=== PATIENT | male | born 1950 | race Hispanic/Latino ===

== ENCOUNTER 2018-05-15 08:59 | Outpatient (CLI) | payer MEDICARE ==
[~2018-05-15 08:59] MED LIST: ISOVUE-370 76%-LOCM 1 ML ONE
--- NOTE | 2018-05-15 11:45 | CT ---
CT ABDOMEN AND PELVIS WITH AND WITHOUT CONTRAST: Technique: Multiple axial tomograms were obtained through the pelvis pre and post IV contrast. Post c ontrast images were obtained with portal venous and delayed venous phase on urographic protocol. Indications: Hematuria. Elevated PSA. FINDINGS: Lung bases are clear. Reviews of the urinary tract on the noncontrast images shows no evidence of urinary tract calculus. N o hydronephrosis. Post contrast images show symmetric enhancement and function of both kidneys. There are tiny renal cy stic lesions seen bilaterally with the largest measuring approximately 1.0 cm. No enhancing renal les ion identified. Delayed contrast images show contrast excretion into the collecting structures. Collecting structures appear unremarkable. The urinary bladder is distended on the delayed sequence. No significant bladder wall thickening. The re is prostatic hypertrophy which does indent the floor of the bladder. There are several small adjacent cystic lesions in the left lobe of the liver with the largest measur ing 2.4 cm. There are at least two smaller cystic lesions in the superior left lobe under the diaphra gm and there is a smaller subcentimeter cystic lesion in the mid right lobe. Spleen and pancreas are unremarkable. Adrenal glands unremarkable. Small bowel loops appear normal. Colon is unremarkable. Aorta is normal caliber. No adenopathy apparent. IMPRESSION: 1. Prostatic hypertrophy. 2. Numerous small renal cystic lesions. 3. Numerous hepatic cysts. POS: C
== END 2018-05-15 09:00 | disposition home or self-care (01) ==
LOC: BICCT 08:59
PROVIDERS: ATTEND Urology
DX: N40.1 Benign prostatic hyperplasia with lower urinary tract symptoms (principal); R35.0 Frequency of micturition; R31.29 Other microscopic hematuria; N28.1 Cyst of kidney, acquired; K76.89 Other specified diseases of liver; Z87.898 Personal history of other specified conditions
CPT/HCPCS: 36415; 74178; 80048; 81001; 82565; 84153; 87086; Q9966

== ENCOUNTER 2018-05-19 06:29 | Observation (INO) | payer MEDICARE ==
--- NOTE | 2018-05-19 11:10 | MRI ---
MRI BRAIN WITHOUT CONTRAST: Date: 05/19/18 HISTORY: Dizziness. FINDINGS: Correlation is made with CT scan from earlier today. No restricted diffusion is seen. No evidence of infarct, hemorrhage, midline shift, or abnormal extra -axial fluid collections are seen. The ventricular size is appropriate and the basilar cisterns are p atent. There is mild mucosal disease in the paranasal sinuses. IMPRESSION: No evidence of acute intracranial process. POS: [facility]
--- NOTE | 2018-05-20 07:51 | SS ---
DATE OF ADMISSION: 05/19/2018 DATE OF DISCHARGE: 05/19/2018 CHIEF COMPLAINT: Vertigo. HISTORY OF PRESENT ILLNESS: This patient is a 67-year-old male, who initially presented to the [facility]. The patient reported that he was awakened from sleep with an episode of significant dizziness with some associated nausea. He had no tinnitus, ear pain, or other neurologic symptoms. Symptoms were worse with moving his head from side to side. He felt like the room was spinning. He was treated with aspirin and meclizine and Zofran. He reports that at that point, his symptoms improved. He showed no nystagmus and his neurologic exam was otherwise pretty unremarkable, Elvin-Hallpike maneuver which was positive. He did not have nystagmus, had a negative head CT. He was transferred to [facility] with acute vertigo with concern for possible CVA. Chest x-ray was also negative. When the patient arrives here, he reported that his symptoms had resolved. He was essentially feeling normal and at his baseline. REVIEW OF SYSTEMS: The patient noted some nausea with vomiting, had completely resolved. He also had a little bit of pressure type sensation in his head, but otherwise all systems were reviewed, all pertinent positive and negative noted in the history of present illness. PAST MEDICAL HISTORY: Hypertension, which was only diagnosed about 1 month ago. He has been started on lisinopril for that. PAST SURGICAL HISTORY: Hernia repair. SOCIAL HISTORY: The patient lives with his in [place]. He is retired. The patient denies alcohol, drugs, or tobacco use. FAMILY HISTORY: Reviewed, no significant contribution in his episode. CURRENT MEDICATION: Lisinopril 10 mg daily. ALLERGIES: NONE. PHYSICAL EXAMINATION: VITAL SIGNS: Blood pressure 137/74, pulse 97, respirations 16, temperature 97.3, and O2 saturations 97% on room air. GENERAL APPEARANCE: Age-appropriate male, in no distress. He is awake, alert, oriented, pleasant, and cooperative. HEENT: PERRL. No OP lesions. NECK: Supple and symmetric with no lymphadenopathy, JVD, or bruits. HEART: Regular rate and rhythm without murmurs, gallops, or rubs. LUNGS: Clear to auscultation bilaterally. Good chest wall expansion and air exchange. ABDOMEN: Soft, nontender, and nondistended. Positive bowel sounds. No masses. No organomegaly. EXTREMITIES: Warm and dry with no cyanosis, clubbing, or edema. NEUROLOGIC: The patient appears awake, alert, and appropriate. He is moving all extremities spontaneously. He is conversant and interactive. Cranial nerves are intact. He has no evidence of focal deficits. Maroa-Hallpike maneuver does elicit symptoms, but they are very mild. IMAGING STUDIES: Brain MRI, negative. IMPRESSION AND PLAN: The patient has apparent benign paroxysmal positional vertigo. The patient had apparent true vertigo that was associated with moving his head and had a positive Elvin-Hallpike. He has had no significant risk factors for stroke or atherosclerosis. He also has negative MRI of the brain and negative CT of the brain. His symptoms appear to have resolved with meclizine and he is basically at his baseline status right now, therefore, I feel confident that the patient does not have acute CVA and can be discharged. Per Neurology recommendations, the patient will be discharged with prednisone taper, and we will also give him prescription for meclizine for symptomatic vertigo, and the patient is to follow up with Dr. Heredia, next available appointment. I explained that the symptoms may persist for a few days and he can treat them symptomatically, and limiting the movement of his head certainly may be beneficial. Job ID: [id number]
== END 2018-05-19 12:15 | disposition home or self-care (01) ==
LOC: ERS 06:29 → ERHOLD 07:33
PROVIDERS: ADMIT Internal Medicine; ATTEND Internal Medicine
DX: R42 Dizziness and giddiness (principal); R11.2 Nausea with vomiting, unspecified; I10 Essential (primary) hypertension; Z79.899 Other long term (current) drug therapy
CPT/HCPCS: 70551

== ENCOUNTER 2018-07-23 11:15 | Day surgery (SDC) | payer MEDICARE ==
[2018-07-22 12:02] VITALS: BMI 18.6
--- NOTE | 2018-07-22 15:55 | HP ---
HISTORY OF PRESENT ILLNESS: This is a 67-year-old male with abdominal pain over the last several months. The patient had seen Dr. Escobar Heredia recently and had routine blood test done. He was found to have positive Helicobacter. He was placed on antibiotics including omeprazole. However, out of 4 days of antibiotic therapy, he got very sick and he did not feel like taking the medicine anymore. The patient's abdominal pain is predominantly over the epigastric area and occurs mostly after meals. There is mild nausea with the pain. The patient had lost some weight since the onset of abdominal pain. He had an abdominal sonogram recently, which was negative. Stool negative for pathology. The patient underwent EGD because of abdominal pain and weight loss. ALLERGIES: TAMSULOSIN. MEDICAL ILLNESSES: 1. Hypertension. 2. Prostatic hypertrophy. PHYSICAL EXAMINATION: VITAL SIGNS: Pulse is 70 and blood pressure 120/70. HEENT: Conjunctivae clear. CARDIOVASCULAR SYSTEM: First and second heart sounds heard. LUNGS: Clear to auscultation. ABDOMEN: Soft. No organomegaly. No masses. Abdomen is tender over the epigastric area. EXTREMITIES: Reveal no edema. ADMITTING DIAGNOSES: Abdominal pain, nausea, and weight loss. PLAN: EGD. Job ID: [id number]
[~2018-07-23 11:15] MED LIST changes: +Iopamidol 370 76% 50 ML VIAL FS ONE
[2018-07-23] MEDS ORDERED: PROPOFOL 200 MG/20 ML VIAL ONE (16:06)
--- NOTE | 2018-07-23 16:28 | CT ---
CT ABDOMEN AND PELVIS WITH IV CONTRAST 07/23/2018 CLINICAL INFORMATION: Abdominal pain and weight loss. COMPARISON: 05/15/2018 Technique: Multiple contiguous axial CT images are obtained through the abdomen and pelvis with IV contrast. Cor onal reformatted images are provided. FINDINGS: Lower Chest: Linear atelectasis is present at the posterior left lung base. Lung bases are otherwise clear. Vessels: Mild atherosclerotic vascular calcifications in the infrarenal abdominal aorta and involving the iliac arteries. Abdomen: Portal vein:Patent Gallbladder: Decompressed but otherwise within normal limits for CT appearance. Liver: As noted on the prior exam, adjacent cluster of left hepatic lobe cysts are seen with hypodens e lesions in the dome of the liver also likely representing cyst as well as a stable subcentimeter too small to characterize hypodense lesion right hepatic lobe. Pancreas: within normal limits. Spleen: within normal limits. Adrenals: within normal limits. Kidneys: Stable subcentimeter hypodense lesions are seen in each kidney which is too small to further characterize but statistically likely represent cysts. Bowel: There is suggested wall thickening region of the pylorus the stomach. This is probably attribu table to incomplete distention, this is unable to be further delineated. Small bowel loops are normal in caliber. Appendix: The appendix is visualized and normal in caliber. Peritoneum: No ascites or free air; no fluid collection. Mesentery and Retroperitoneum: No enlarged mesenteric or retroperitoneal lymph nodes. Abdominal Wall: within normal limits. Pelvis: Reproductive Organs: No pelvic masses. Pelvis: The prostate gland remains enlarged in transverse dimensions with mild heterogeneous appearan ce. The prostate gland measures approximately 5.4 cm in transverse dimensions. There are low-density areas seen adjacent to each inguinal canal and extending into each inguinal can al, stable from prior study and may be related to prior hernia repair. Bladder: Mostly decompressed and not well evaluated. Bones: Degenerative changes are seen in the spine. IMPRESSION: 1. No acute findings are seen in the abdomen or pelvis. CT abdomen and pelvis is stable compared to t he prior exam. 2. Hepatic cysts. 3. Too small to characterize hypodense lesions in each kidney. 4. Enlargement of the prostate gland.
--- NOTE | 2018-07-24 13:09 | OP ---
DATE OF PROCEDURE: 07/23/2018 PROCEDURE PERFORMED: Esophagogastroduodenoscopy with biopsy. PREOPERATIVE DIAGNOSES: Abdominal pain, dyspepsia, heartburn, and weight loss. The patient had a negative abdominal sonogram recently. The patient's pain is over the epigastric area, mostly postprandial. He has not responded to omeprazole. He is undergoing an EGD. POSTOPERATIVE DIAGNOSES: 1. Normal esophageal mucosa. 2. Mild duodenitis and antral gastritis. DESCRIPTION OF PROCEDURE: The patient was placed on his left lateral position and was given sedation by Anesthesia Department. A Pentax video gastroscope under direct vision was passed down the oropharynx, past the GE junction into the stomach and subsequently into the descending duodenum. Although, the patient complained of dyspepsia and also heartburn and abdominal pain, the esophageal mucosa appeared normal. The GE junction, no pathology. The fundus and cardia, no lesion seen. The gastric body, no pathology. There was mild mucosal hyperemia of the gastric antrum. The duodenal bulb and descending duodenum, no pathology seen, except for mild duodenitis. Biopsy was obtained from the gastric antrum and gastric body. The stomach was decompressed and the scope removed. DISCHARGE PLANNING: This is a 67-year-old male referred to me by Dr. Heredia because of abdominal pain and weight loss. He had an abdominal sonogram, which came back negative. The EGD showed . We will plan for an abdominal CAT scan today and make further recommendations after the CAT scan findings. Job ID: [id number]
== END 2018-07-23 16:32 | disposition home or self-care (01) ==
LOC: SDC 11:15
PROVIDERS: ATTEND Internal Medicine Gastroenterology
PROC: 0DB78ZX Excision of Stomach, Pylorus, Via Natural or Artificial Opening Endoscopic, Diagnostic (ICD-10-PCS; principal; 2018-07-23)
DX: K29.50 Unspecified chronic gastritis without bleeding (principal); B96.81 Helicobacter pylori [H. pylori] as the cause of diseases classified elsewhere; K29.80 Duodenitis without bleeding; I10 Essential (primary) hypertension; N40.0 Benign prostatic hyperplasia without lower urinary tract symptoms; Z79.899 Other long term (current) drug therapy
CPT/HCPCS: 74177; 82565; 88305; 88312; 88342; J2704; Q9966; Q9967

== ENCOUNTER 2018-10-13 13:01 | Emergency (ER) | payer MEDICARE ==
[2018-10-13 14:04] LABS: #Basophils 0.1 thou/uL (0.0-0.2); #Eosinphils 0.1 thou/uL (0.0-0.7); #Lymphocytes 1.7 thou/uL (1.20-3.40); #Monocytes 0.6 thou/uL (0.11-0.59); #Neutrophils 5.2 thou/uL (1.40-6.50); %Basophils 0.9 % (0.0-1.0); %Eosinophils 1.1 % (0.0-10.0); %Lymphocytes 22.5 % (21.0-51.0); %Monocytes 7.5 % (0.0-10.0); Hemoglobin 13.9 g/dL (14.0-18.0); Mean Corpuscular HGB CONC 33.1 g/dL (32.0-36.0); Mean Corpuscular Hemoglobin 31.7 pg (27.0-31.0); Mean Corpuscular Volume 95.6 fL (78.0-98.0); Mean Platelet Volume 7.8 fL (7.4-10.4); Platelet Count 217 thou/uL (130-400); RBC Distribution Width 11.7 % (11.5-14.5); Red Blood Cell (RBC) Count 4.39 mill/uL (4.70-6.10); White Blood Cell (WBC) Count 7.6 thou/uL (4.8-10.8)
[2018-10-13 14:26] LABS: ALT (SGPT) 14 U/L (8-55); AST (SGOT) 17 U/L (5-34); Albumin 4.5 g/dL (3.4-4.8); Alkaline Phosphatase 81 U/L (40-150); Anion Gap 11 mmol/L (10-20); BUN (Urea Nitrogen) 17 mg/dL (8.4-25.7); Bilirubin, Total 1.1 mg/dL (0.2-1.2); Calc. Creatinine Clearance 0 mL/min (70-130); Calcium 10.3 mg/dL (7.8-10.44); Carbon Dioxide 26 mmol/L (23-31); Chloride 106 mmol/L (98-107); Estimated GFR-MDRD 88; Glucose 100 mg/dL (80-115); Potassium 3.9 mmol/L (3.5-5.1); Protein, Total 7.5 g/dL (5.8-8.1); Sodium 139 mmol/L (136-145)
--- NOTE | 2018-10-13 14:35 | CT ---
CT BRAIN WITHOUT CONTRAST: Date: 10/13/18 HISTORY: Dizziness. Hypertension. FINDINGS: Comparison made with exam of 05/19/18. No evidence of infarct, hemorrhage, midline shift, or abnormal extra-axial fluid collections are seen . The ventricular size is normal and the basilar cisterns are patent. The bony calvarium is intact. T he visualized paranasal sinuses and mastoid air cells are well aerated. IMPRESSION: No CT evidence of acute intracranial process. POS: OFF
== END 2018-10-13 15:43 | disposition home or self-care (01) ==
LOC: ERS 13:01
DX: I10 Essential (primary) hypertension (principal); Z79.899 Other long term (current) drug therapy
CPT/HCPCS: 36415; 70450; 80053; 85025; 93005

== ENCOUNTER 2019-02-04 07:44 | Outpatient (CLI) | payer MEDICARE ==
[2019-02-04 11:33] LABS: Hemoglobin 13.9 g/dL (14.0-18.0); Mean Corpuscular HGB CONC 33.9 g/dL (32.0-36.0); Mean Corpuscular Hemoglobin 32.1 pg (27.0-31.0); Mean Corpuscular Volume 94.6 fL (78.0-98.0); Mean Platelet Volume 7.5 fL (7.4-10.4); Platelet Count 228 thou/uL (130-400); RBC Distribution Width 11.8 % (11.5-14.5); Red Blood Cell (RBC) Count 4.32 mill/uL (4.70-6.10); White Blood Cell (WBC) Count 7.1 thou/uL (4.8-10.8)
[2019-02-04 11:39] LABS: Prothrombin Time 13.1 SEC (12.0-14.7)
[2019-02-04 12:07] LABS: Anion Gap 12 mmol/L (10-20); BUN (Urea Nitrogen) 16 mg/dL (8.4-25.7); Calc. Creatinine Clearance 0 mL/min (70-130); Calcium 9.7 mg/dL (7.8-10.44); Carbon Dioxide 27 mmol/L (23-31); Chloride 102 mmol/L (98-107); Estimated GFR-MDRD 76; Glucose 80 mg/dL (80-115); Potassium 4.4 mmol/L (3.5-5.1); Sodium 137 mmol/L (136-145)
[2019-02-04 13:35] LABS: Bacteria/HPF None Seen HPF (None Seen); Bilirubin Negative (Negative); Blood, Urine Negative (Negative); Clarity Turbid (Clear); Glucose, Urine (Dipstick) Normal (Negative); Leukocyte Negative Leu/uL (Negative); Nitrite Negative (Negative); Protein, Urine (Dipstick) Negative (Neg-Trace); RBC/HPF 0-3 HPF (0-3); Squamous Epithelial None Seen HPF (0-3); Urobilinogen Normal mg/dL (Less than 2); WBC/HPF 0-3 HPF (0-3)
--- NOTE | 2019-02-05 07:09 | EKG ---
Test Reason : Blood Pressure : / mmHG Vent. Rate : 067 BPM Atrial Rate : 067 BPM P-R Int : 128 ms QRS Dur : 088 ms QT Int : 388 ms P-R-T Axes : 073 081 038 degrees QTc Int : 409 ms Normal sinus rhythm Poor anterior R wave progression When compared with ECG of 13-OCT-2018 13:50, Questionable change in QRS axis QT has shortened Confirmed by DR. Dayron ARTHUR ([id number]) on 02/05/2019 7:09:00 AM Referred By: YULISSA Confirmed By:DR. Dayron ARTHUR
== END 2019-02-04 07:45 | disposition home or self-care (01) ==
LOC: LABBT 07:44
PROVIDERS: ATTEND Urology
DX: Z01.818 Encounter for other preprocedural examination (principal); N40.1 Benign prostatic hyperplasia with lower urinary tract symptoms; Z12.5 Encounter for screening for malignant neoplasm of prostate; R35.0 Frequency of micturition; I10 Essential (primary) hypertension; R30.0 Dysuria; Z87.898 Personal history of other specified conditions; R31.29 Other microscopic hematuria
CPT/HCPCS: 80048; 81001; 85027; 85610; 85730; 87086; 93005; 93010

== ENCOUNTER 2019-02-18 06:02 | Day surgery (SDC) | payer MEDICARE ==
[2019-02-04 10:18] VITALS: BMI 17.2
[2019-02-18] MEDS ORDERED: Levofloxacin 500 mg/D5W 100 ml Premix Bag ONE (06:25)
[2019-02-18] MEDS ORDERED: Fentanyl 100 MCG/2 ML VIAL ONE (06:56)
[2019-02-18] MEDS ORDERED: Midazolam HCl 2 mg/2 ml Vial ONE (06:56)
[2019-02-18] MEDS ORDERED: Phenazopyridine HCl 97.5 MG TABLET ONE (08:32)
[2019-02-18] MEDS ORDERED: PROPOFOL 200 MG/20 ML VIAL ONE (10:39)
[2019-02-18] MEDS ORDERED: Lidocaine 1% PF 5 ML VIAL ONE (10:39)
--- NOTE | 2019-02-18 14:41 | OP ---
DATE OF PROCEDURE: 02/18/2019 PREOPERATIVE DIAGNOSES: A 68-year-old male with history of BPH, severe lower urinary tract symptoms, difficulty tolerating BPH medications. POSTOPERATIVE DIAGNOSES: A 68-year-old male with history of BPH, severe lower urinary tract symptoms, difficulty tolerating BPH medications. PROCEDURES PERFORMED: Cystoscopy, UroLift implant x7. ANESTHESIA: TIVA. COMPLICATIONS: None apparent. DISPOSITION: To recovery room in stable condition. INDICATIONS FOR THE PROCEDURE AND HISTORY: Mr. Padilla is a 68-year-old male with history of BPH symptoms of decreased urinary caliber, hesitancy, nocturia three times, sensation of incomplete void. He has difficulty tolerating BPH medications due to dizziness, headache, and heart palpitations. He underwent cystoscopy, volume study and presents today for UroLift procedure. Risks and complications of the procedure were reviewed with him in detail including, but not limited to, bleeding, pain, infection, injury to adjacent organs, chronic pain, possible migration of implant resulting in urethral, bladder stone, injury to adjacent organs such as major vasculature, ureteral orifice, stricture disease, was reviewed with him in detail and all questions answered to his satisfaction. He desired to proceed. Alternatives of the procedure including observation, TURP was reviewed. He desires to proceed with UroLift and declines TURP. DESCRIPTION OF PROCEDURE: After an informed consent was signed, the patient was taken to the operating room, placed in a dorsal lithotomy position with the genital area prepped and draped in the usual surgical sterile fashion. Broad-spectrum antibiotics were provided. A 22-Chilean cystoscope was utilized to perform cystoscopy. He has nonobstructing early bulbar urethral strictures that did not warrant treatment. Scope was easily passed. Prostatic urethra was staged demonstrating moderately obstructing lateral lobes with no evidence of intravesical median lobe. Bladder itself was grossly unremarkable. Ureteral orifices were about 3 to 4 mm proximal to the bladder neck. Ureteral orifices were kept out of harm 's way, we proceeded to perform the UroLift implant. UroLift device was then placed with a visual obturator. We first implanted the left lateral lobe near the bladder neck first. We stayed about a centimeter and a half proximal to the bladder neck and the implants were placed on the left side first. We subsequently placed 3 on the left side, 4 implants on the right prostatic lobe. At the end of the procedure, he had resolution of obstructing lateral lobes, with a nice anterior channel. He tolerated the procedure well and transported to the recovery room in stable condition. We will observe the patient for a voiding trial. He is discharged with Azo [id number] p.r.n. and ciprofloxacin for course of 5 days. He will return to clinic this week for peak flow PVR check. Job ID: [id number] MTDD
== END 2019-02-18 12:45 | disposition home or self-care (01) ==
LOC: SDC 06:02
PROVIDERS: ATTEND Urology
PROC: 0T7D8DZ Dilation of Urethra with Intraluminal Device, Via Natural or Artificial Opening Endoscopic (ICD-10-PCS; principal; 2019-02-18)
DX: N40.1 Benign prostatic hyperplasia with lower urinary tract symptoms (principal); R39.11 Hesitancy of micturition; R39.14 Feeling of incomplete bladder emptying; R35.1 Nocturia; N35.912 Unspecified bulbous urethral stricture, male; Z79.899 Other long term (current) drug therapy; Z88.8 Allergy status to other drugs, medicaments and biological substances
CPT/HCPCS: C1889; J1956; J2001; J2250; J2704; J3010